=== PATIENT | male | born 1990 | race Two or more races ===

== ENCOUNTER 2021-04-02 22:05 | Emergency (ER) | payer SELFPAY ==
[~2021-04-02] VITALS: Ht 177.8 cm; Wt 95.3 kg
[2021-04-03 01:15] VITALS: BP 127/86
[2021-04-03] MEDS ORDERED: TETANUS-DIPTH-ACEL PERTUSSIS 0.5ML SYR Tdap IM ONE (02:00)
== END 2021-04-03 03:13 | disposition home or self-care (01) ==
LOC: ER 22:05
DX: S01.01XA Laceration without foreign body of scalp, initial encounter (principal); X58.XXXA Exposure to other specified factors, initial encounter; Y93.89 Activity, other specified; Y92.89 Other specified places as the place of occurrence of the external cause; Y99.8 Other external cause status
CPT/HCPCS: 12002; 90471; 90715